=== PATIENT | male | born 2005 | race Caucasian/White ===

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

== ENCOUNTER 2025-05-24 15:01 | Emergency (ER) | payer OTHER ==
[2025-05-24 15:22] VITALS: BP 135/83; PULSE 89; RESP 22; TEMP 98.3
--- NOTE | 2025-05-24 15:40 | ED ---
Wound/Laceration HPI - General Chief Complaint: Wound/Laceration Stated Complaint: left leg laceration Time Seen by Provider: 05/24/25 15:25 Source: patient, family, RN notes reviewed Mode of arrival: wheelchair Limitations: no limitations - History of Present Illness Initial Comments: 20-year-old male presented the ER via EMS for evaluation of a laceration. Patient states he was working on a car and accidentally cut his left calf with a bridgette nail. He states he immediately applied pressure as it was bleeding and called 911. Tetanus status unknown. He denies any paresthesias or limited range of motion of left calf. Patient has been able to ambulate since incident. No other injuries. - Related Data Home Medications Medication Instructions Recorded Confirmed Albuterol Sulfate [Proair Hfa] 2 puff INHALATION RT-Q6H PRN 12/17/21 12/17/21 Dexmethylphenidate HCl [Focalin Xr] 15 mg PO DAILY 12/17/21 12/17/21 Allergies Allergy/AdvReac Type Severity Reaction Status Date / Time No Known Allergies Allergy Verified 05/24/25 15:16 Review of Systems ROS Statement: Those systems with pertinent positive or pertinent negative responses have been documented in the HPI. ROS Other: All systems not noted in ROS Statement are negative. Past Medical History Past Medical History: No Reported History Additional Past Medical History / Comment(s): FATTY LIVER DISEASE History of Any Multi-Drug Resistant Organisms: None Reported Past Surgical History: No Surgical Hx Reported Past Psychological History: ADD/ADHD Smoking Status: Never smoker Past Alcohol Use History: None Reported Past Drug Use History: None Reported General Exam Limitations: no limitations General appearance: alert, in no apparent distress Respiratory exam: Present: normal lung sounds bilaterally. Absent: respiratory distress, wheezes, rales, rhonchi, stridor Cardiovascular Exam: Present: regular rate, normal rhythm, normal heart sounds. Absent: systolic murmur, diastolic murmur, rubs, gallop, clicks Extremities exam: Present: normal inspection, full ROM, normal capillary refill. Absent: tenderness, pedal edema, joint swelling, calf tenderness Neurological exam: Present: alert, oriented X3, CN II-XII intact Skin exam: Present: warm, dry, intact, normal color, other (2 cm superficial laceration left medial calf. No active bleeding. Wound does not extend through dermis. No foreign bodies. Deep structures intact.). Absent: rash Course Vital Signs 05/24/25 15:05 Temperature 98.3 F Pulse Rate 89 Respiratory 22 Rate Blood Pressure 135/83 O2 Sat by Pulse 99 Oximetry Medical Decision Making - Medical Decision Making Was pt. sent in by a medical professional or institution (KANDI Mccray, HYSTER MACHINE OPERATOR, urgent care, hospital, or [facility]...) When possible be specific @ -No Did you speak to anyone other than the patient for history (EMS, parent, family, police, friend...)? What history was obtained from this source @ -No Did you review nursing and triage notes (agree or disagree)? Why? @ -I reviewed and agree with nursing and triage notes Were old charts reviewed (outside hosp., previous admission, EMS record, old EKG, old radiological studies, urgent care reports/EKG's, [facility] records)? Report findings @ -No old charts were reviewed Differential Diagnosis (chest pain, altered mental status, abdominal pain women, abdominal pain men, vaginal bleeding, weakness, fever, dyspnea, syncope, headache, dizziness, GI bleed, back pain, seizure, CVA, palpatations, mental health, musculoskeletal)? @ -Laceration, abrasion, contusion, avulsion, foreign body this list is not meant to be all-inclusive EKG interpreted by me (3pts min.). @ -None done X-rays interpreted by me (1pt min.). @ -None done CT interpreted by me (1pt min.). @ -None done U/S interpreted by me (1pt. min.). @ -None done What testing was considered but not performed or refused? (CT, X-rays, U/S, labs)? Why? @ -None What meds were considered but not given or refused? Why? @ -None Did you discuss the management of the patient with other professionals (professionals i.e. KANDI Mccray, HYSTER MACHINE OPERATOR, lab, RT, psych nurse, social worker delinquency prevention, fruit coordinator, teacher, svp chief marketing officer, supervisor case loading)? Give summary @ -No Was smoking cessation discussed for >3mins.? @ -No Was critical care preformed (if so, how long)? @ -No Were there social determinants of health that impacted care today? How? (Homelessness, low income, unemployed, alcoholism, drug addiction, transportation, low edu. Level, literacy, decrease access to med. care, fdc, rehab)? @ -No Was there de-escalation of care discussed even if they declined (Discuss DNR or withdrawal of care, Hospice)? DNR status @ -No What co-morbidities impacted this encounter? (DM, HTN, Smoking, COPD, CAD, Cancer, CVA, ARF, Chemo, Hep., AIDS, mental health diagnosis, sleep apnea, morbid obesity)? @ -None Was patient admitted / discharged? Hospital course, mention meds given and route, prescriptions, significant lab abnormalities, going to OR and other pertinent info. @ -Discharge. 20-year-old male presented to ER via EMS for evaluation of a laceration. Vital signs stable. Exam remarkable for 2 cm superficial laceration to left medial calf. Wound does not extend through dermis. No active bleeding. Patient is neurovascular intact. Tetanus updated in emergency department. Patient provided p.o. ibuprofen for pain control. Wound cleaned with iodine and sterile water. Given location, depth and concern of infection wound closure performed. Patient is agreeable to this as he states "I do not want stitches". Wound and return parameters discussed. Patient discharged stable condition advised follow closely PCP. Patient verbally expressed understanding agree with care plan. Case discussed with ED attending, Dr. Hickman Undiagnosed new problem with uncertain prognosis? @ -No Drug Therapy requiring intensive monitoring for toxicity (Heparin, Nitro, Insulin, Cardizem)? @ -No Were any procedures done? @ -No Diagnosis/symptom? @ -Laceration Acute, or Chronic, or Acute on Chronic? @ -Acute Uncomplicated (without systemic symptoms) or Complicated (systemic symptoms)? @ -Uncomplicated Side effects of treatment? @ -No Exacerbation, Progression, or Severe Exacerbation? @ -No Poses a threat to life or bodily function? How? (Chest pain, [place], PR, pneumonia, PE, COPD, DKA, ARF, appy, cholecystitis, CVA, Diverticulitis, Homicidal, Suicidal, threat to staff... and all critical care pts) @ -No Disposition Clinical Impression: Laceration Disposition: HOME SELF-CARE Condition: Stable Instructions (If sedation given, give patient instructions): Laceration (DC) Additional Instructions: Keep area clean and dry. I recommend cleaning with warm soapy water multiple times a day. Avoid hydrogen peroxide or rubbing alcohol to clean wound as this may disrupt healing process. Monitor for signs infection including surrounding redness, swelling, thick purulent drainage. Follow-up with PCP. Return to the ER if any new or worsening concerns Is patient prescribed a controlled substance at d/c from ED?: No Referrals: Tristan Singh MD [Primary Care Provider] - 1-2 days Time of Disposition: 16:46
[2025-05-24] MEDS: IBUPROFEN 600 MG TAB PO STA (16:37)
[2025-05-24] MEDS: DIPH,PERTUS(ACELL)TETVAC-LF 0.5 ML VIAL IM ONE (16:38)
[2025-05-24] MEDS: TOPICAL SKIN ADHESIVE 1 EACH AMP TOPICAL ONE (16:38)
== END 2025-05-24 17:20 | disposition home or self-care (01) ==
LOC: EC 15:01
DX: S81.812A Laceration without foreign body, left lower leg, initial encounter (principal); Z23 Encounter for immunization; W45.0XXA Nail entering through skin, initial encounter; Y93.H9 Activity, other involving exterior property and land maintenance, building and construction
CPT/HCPCS: 90471; 90715; 99283